=== PATIENT | female | born 1995 | race Two or more races ===

== ENCOUNTER 2022-11-08 11:23 | Emergency (ER) | payer OTHER ==
[~2022-11-08] VITALS: Ht 170.2 cm; Wt 52.2 kg
== END 2022-11-08 15:21 | disposition home or self-care (01) ==
LOC: ER 11:23
DX: U07.1 COVID-19 (principal)

== ENCOUNTER 2022-11-10 21:12 | Emergency (ER) | payer OTHER ==
[~2022-11-10] VITALS: Ht 170.2 cm; Wt 51.7 kg
[2022-11-11] MEDS ORDERED: PEPCID40 MG PO (04:32)
[2022-11-11] MEDS ORDERED: ONDANSETRON ODT4 MG PO (04:32)
== END 2022-11-11 04:42 ==
LOC: ER 21:12
DX: O20.9 Hemorrhage in early pregnancy, unspecified (principal); Z3A.01 Less than 8 weeks gestation of pregnancy

== ENCOUNTER 2022-12-06 09:13 | Emergency (ER) | payer OTHER ==
[~2022-12-06] VITALS: Ht 170.2 cm; Wt 53.5 kg
[~2022-12-06 09:13] MED LIST: ONDANSETRON ODT4 MG PO; PEPCID40 MG PO
== END 2022-12-06 16:43 | disposition home or self-care (01) ==
LOC: ER 09:13
DX: O99.611 Diseases of the digestive system complicating pregnancy, first trimester (principal); K29.70 Gastritis, unspecified, without bleeding; Z3A.11 11 weeks gestation of pregnancy

== ENCOUNTER 2022-12-24 09:39 | Outpatient (CLI) | payer OTHER | END 2022-12-24 12:33 | disposition home or self-care (01) | LOC: PRENATAL 09:39 | PROVIDERS: ATTEND Obstetrics & Gynecology Maternal & Fetal Medicine | DX: O36.80X0 Pregnancy with inconclusive fetal viability, not applicable or unspecified (principal); Z36.82 Encounter for antenatal screening for nuchal translucency; Z36.9 Encounter for antenatal screening, unspecified; O21.0 Mild hyperemesis gravidarum; Z3A.13 13 weeks gestation of pregnancy ==

== ENCOUNTER 2023-02-01 08:18 | Outpatient (CLI) | payer OTHER | END 2023-02-01 09:45 | disposition home or self-care (01) | LOC: PRENATAL 08:18 | PROVIDERS: ATTEND Obstetrics & Gynecology Maternal & Fetal Medicine | DX: O35.9XX0 Maternal care for (suspected) fetal abnormality and damage, unspecified, not applicable or unspecified (principal); O35.3XX0 Maternal care for (suspected) damage to fetus from viral disease in mother, not applicable or unspecified; O44.00 Complete placenta previa NOS or without hemorrhage, unspecified trimester; Z3A.19 19 weeks gestation of pregnancy ==

== ENCOUNTER 2023-04-29 11:57 | Emergency (ER) | payer OTHER ==
[~2023-04-29] VITALS: Ht 170.2 cm; Wt 59.0 kg
[2023-04-29] MEDS ORDERED: PRIMACARE SOFT1 EACH (12:39)
[2023-04-29] MEDS ORDERED: ZITHROMAX500 MG PO (14:07)
[2023-04-29] MEDS ORDERED: PEPCID AC20 MG PO (14:07)
[2023-04-29] MEDS ORDERED: TUSSIN100 MG/51 PO (14:07)
[2023-04-29] MEDS ORDERED: DOLOGEN CAPLET1 EACH PO (14:09)
== END 2023-04-29 14:37 | disposition home or self-care (01) ==
LOC: ER 11:58
DX: O99.513 Diseases of the respiratory system complicating pregnancy, third trimester (principal); J06.9 Acute upper respiratory infection, unspecified; Z3A.31 31 weeks gestation of pregnancy

== ENCOUNTER 2023-05-04 13:21 | Outpatient (CLI) | payer OTHER ==
[~2023-05-04 13:21] MED LIST changes: +DOLOGEN CAPLET1 EACH PO; +PEPCID AC20 MG PO; +PRIMACARE SOFT1 EACH; +TUSSIN100 MG/51 PO; +ZITHROMAX500 MG PO
== END 2023-05-04 13:22 | disposition home or self-care (01) ==
LOC: PRENATAL 13:21
PROVIDERS: ATTEND Obstetrics & Gynecology Maternal & Fetal Medicine
DX: O26.849 Uterine size-date discrepancy, unspecified trimester (principal); O36.8199 Decreased fetal movements, unspecified trimester, other fetus; Z3A.32 32 weeks gestation of pregnancy

== ENCOUNTER 2023-06-09 15:13 | Outpatient (CLI) | payer OTHER | END 2023-06-09 15:39 | disposition home or self-care (01) | LOC: NST 15:13 | PROVIDERS: ATTEND Obstetrics & Gynecology | DX: Z34.83 Encounter for supervision of other normal pregnancy, third trimester (principal) ==

== ENCOUNTER 2023-06-14 13:30 | Inpatient (IN) | payer OTHER ==
[~2023-06-14] VITALS: Ht 157.5 cm; Wt 66.2 kg
[2023-06-14 13:44] LABS: HEMATOCRIT 31.1 % (36.0-45.00); HEMOGLOBIN 10.9 g/dL (12.0-15.00); MEAN CELL VOLUME 89.9 fL (80.00-100.00); MEAN CORPUSCULAR HEMOGLOBIN 31.3 pg (27.00-32.0); MEAN CORPUSCULAR HGB CONC 34.9 g/dl (32.0-36.0); PLATELET COUNT 224 K/uL (150-450); RED BLOOD COUNT 3.47 M/uL (4.00-6.00); RED CELL DISTRIBUTION WIDTH 15.2 % (11.5-14.5)
[2023-06-14 14:09] LABS: INR < 0.93; PARTIAL THROMBOPLASTIN TIME 28.5 SECONDS (22.0-34.0); PROTHROMBIN TIME 9.8 SECONDS (9.0-11.5)
[2023-06-14 14:11] LABS: URINE APPEARANCE Cloudy; URINE BILIRRUBIN Negative (NEGATIVE); URINE BLOOD Negative; URINE COLOR Yellow; URINE GLUCOSE Negative (NEGATIVE); URINE LEUKOCYTE Moderate; URINE NITRATE Negative; URINE PROTEIN Trace (NEGATIVE); URINE UROBILINOGEN 0.2 E.U./dl
[2023-06-14 14:13] LABS: URINE BACTERIA 6901.7 uL (0.0-1933); URINE EPITHELIAL CELLS 58.7 uL (0.0-38.8); URINE RBC 25.1 uL (0.0-20.8); URINE WBC 292.6 uL (0.0-23.2)
[2023-06-14 14:25] LABS: BILIRUBIN TOTAL 0.27 mg/dL (0.3-1.2); CALCIUM 9.4 mg/dL (8.5-10.1); CREATININE SERUM 0.66 mg/dL (0.55-1.02); GFR 105.88; GLOBULINA 3.2 G/DL (2.4-3.5); POTASSIUM 4.1 mEq/L (3.5-5.1); TOTAL PROTEIN 6.2 gm/dL (6.4-8.2)
[2023-06-16] MEDS ORDERED: MISOPROSTOL 50 MCG TABLET ONE ×2 (12:41→18:14)
[2023-06-16] MEDS ORDERED: MISOPROSTOL 50 MCG TABLET VAG ONE ×2 (12:45→20:45)
[2023-06-16] MEDS ORDERED: MEPERIDINE HCL/PF 25 MG/ML VIAL IV ONE ×2 (19:45→21:30)
[2023-06-16] MEDS ORDERED: PROMETHAZINE HCL 25 MG/ML AMPUL IV ONE ×2 (19:45→21:30)
[2023-06-16] MEDS ORDERED: AMPICILLIN SODIUM 2,000 MG VIAL ONE (22:44)
[2023-06-16] MEDS ORDERED: PANTOPRAZOLE SODIUM 40 MG/VIAL VIAL IV PUSH ONE (22:45)
[2023-06-17] MEDS ORDERED: NALOXONE HCL 0.4 MG/ML AMPUL ONE (00:42)
[2023-06-17] MEDS ORDERED: CHLORHEXIDINE GLUCONATE 120 ML BOTTLE TOP ONE (00:43)
[2023-06-17] MEDS ORDERED: ERYTHROMYCIN BASE 1 GM TUBE OP ONE (00:43)
[2023-06-17] MEDS ORDERED: OXYTOCIN 10 UNITS/ML VIAL ONE (01:13)
[2023-06-17] MEDS ORDERED: CEFAZOLIN SODIUM 1,000 MG VIAL ONE (01:55)
[2023-06-17] MEDS ORDERED: IBUprofen 400 MG TABLET PO PRN (02:30)
[2023-06-17] MEDS ORDERED: CEFAZOLIN SODIUM 1,000 MG VIAL IV ONE (02:30)
[2023-06-17] MEDS ORDERED: LIDOCAINE HCL 1% 200MG/20ML VIAL IJ SCH (02:30)
[2023-06-17] MEDS ORDERED: CHLORHEXIDINE GLUCONATE 120 ML BOTTLE TP SCH (02:30)
[2023-06-17] MEDS ORDERED: ERYTHROMYCIN BASE 1 GM TUBE OP SCH (02:30)
[2023-06-17] MEDS ORDERED: OXYTOCIN 500 ML IV ONE (02:45)
[2023-06-17] MEDS ORDERED: OXYTOCIN 20 UNITS/1000ML RL PIGGYBAG IV ONE (02:45)
[2023-06-17] MEDS ORDERED: ACETAMINOPHEN 325 MG TABLET PO SCH (05:00)
[2023-06-17 10:23] LABS: HEMOGLOBIN 10.3 g/dL (12.0-15.00); MEAN CELL VOLUME 89.9 fL (80.00-100.00); MEAN CORPUSCULAR HEMOGLOBIN 31.1 pg (27.00-32.0); MEAN CORPUSCULAR HGB CONC 34.5 g/dl (32.0-36.0); PLATELET COUNT 215 K/uL (150-450); RED BLOOD COUNT 3.33 M/uL (4.00-6.00); RED CELL DISTRIBUTION WIDTH 15.5 % (11.5-14.5)
== END 2023-06-19 13:51 | disposition home or self-care (01) | DRG 806 ==
LOC: LDR 06-16 10:13 → OB/GYN 06-16 10:13 → LDR 06-16 15:28 → OB/GYN 06-17 02:50 → SURH 06-28 13:30
PROVIDERS: Obstetrics & Gynecology; ADMIT Obstetrics & Gynecology; ATTEND Obstetrics & Gynecology
PROC: 3E0P7VZ Introduction of Hormone into Female Reproductive, Via Natural or Artificial Opening (ICD-10-PCS; 2023-06-16)
PROC: 4A1HXCZ Monitoring of Products of Conception, Cardiac Rate, External Approach (ICD-10-PCS; 2023-06-16)
PROC: 10E0XZZ Delivery of Products of Conception, External Approach (ICD-10-PCS; principal; 2023-06-17)
PROC: 0UQMXZZ Repair Vulva, External Approach (ICD-10-PCS; 2023-06-17)
PROC: 0W8NXZZ Division of Female Perineum, External Approach (ICD-10-PCS; 2023-06-17)
PROC: 3E033VJ Introduction of Other Hormone into Peripheral Vein, Percutaneous Approach (ICD-10-PCS; 2023-06-17)
DX: O71.82 Other specified trauma to perineum and vulva (principal); O41.03X0 Oligohydramnios, third trimester, not applicable or unspecified; O36.5930 Maternal care for other known or suspected poor fetal growth, third trimester, not applicable or unspecified; Z37.0 Single live birth; Z3A.38 38 weeks gestation of pregnancy

== ENCOUNTER 2023-06-15 16:03 | Outpatient (CLI) | payer OTHER ==
[~2023-06-15] VITALS: Ht 157.5 cm; Wt 66.2 kg
== END 2023-06-16 10:12 | disposition still patient (30) ==
LOC: OBS/DEL 16:03
PROVIDERS: ATTEND Obstetrics & Gynecology
DX: O26.893 Other specified pregnancy related conditions, third trimester (principal)